=== PATIENT | female | born 1990 | race Caucasian/White ===

== ENCOUNTER 2017-08-21 12:12 | Outpatient (CLI) ==
[2014-11-22 01:58] VITALS: BMI 19.5
== END 2017-08-21 12:13 | disposition home or self-care (01) ==
LOC: RHC-LAB 12:12
PROVIDERS: ATTEND Nurse Practitioner Family
DX: R05 Cough (principal); R11.2 Nausea with vomiting, unspecified; Z32.01 Encounter for pregnancy test, result positive
CPT/HCPCS: 36415; 80053; 84703; 85007; 85025; 87651; 87804

== ENCOUNTER 2017-12-09 17:10 | Emergency (ER) ==
[2017-12-09 17:16] VITALS: BP 130/78; TEMP 97.5; BMI 21.7
[2017-12-09] MEDS ORDERED: SODIUM CHLORIDE 1,000 ML IV STA ×2 (17:39→18:28)
--- NOTE | 2017-12-09 18:26 | ED.PDOC ---
General Stated Complaint: NAUSEA, VOMITING 23 WEEKS GESTATION Time Seen by Physician: 17:12 (SEE WITH NURSE AT BEDSIDE AT ALL TIMES A0) Mode of Arrival: Walk-In Information Source: Patient Exam Limitations: No limitations Referred to ED by: Other (DENIED EATING ANY SPOILED FOOD OR AT PICNIC NOONE ELSE HAS SIMILAR SYMPTOMS AT HER HOUSEHOLD) Nursing and Triage Documentation Reviewed and Agree: Yes Does patient meet sepsis criteria?: No If yes, has appropriate treatment been initiated?: No System Inflammatory Response Syndrome: Not Applicable (ONSET 1 DAY AGO) <BRIANNA HINOJOSA - Last Filed: 12/09/17 18:29> <NORM INGRAM - Last Filed: 12/09/17 19:31> ED Provider: Dr. NORM INGRAM Chief Complaint: Nausea/Vomiting [facility] Sepsis Protocol: For patient's 13 years and over: Temp is 96.8 and below OR 101 and greater Pulse >90 BPM Resp >20/minute Acutely Altered Mental Status Are patient's symptoms suggestive of a new infection, such as: -Pneumonia -Skin, Soft Tissue -Endocarditis -UTI -Bone, Joint Infection -Implantable Device -Acute Abdominal Infection -Wound Infection -Meningitis -Blood Stream Catheter Infection -Unknown GI Complaint Exam - Vomiting/Diarrhea Complaint/Exam Onset/Duration: 1 DAY Symptoms Are: Resolved Initial Severity: Mild Current Severity: None Character of Vomiting: Reports: Non-bilious Aggravating: Reports: None Alleviating: Reports: None Associated Signs and Symptoms: Reports: Abdominal pain. Denies: Dizziness, Light-headedness, Melena, Hematemesis, Fever, Cramping Last Oral Intake: YES Last Bowel Movement: TODAY LOOSE : 3 Para: 2 Hx Total # of Abortions (Spontaneous & Elective): 0 Non-GI Risk Factors: Reports: None Surgical Obstruction Risk Factors: Reports: None Related Surgical History: Reports: None Abdominal Findings: Present: None ( HEART TONE ON ARRIVAL WAS WNL) <BRIANNA HINOJOSA - Last Filed: 12/09/17 18:29> Review of Systems - Review Of Systems Constitutional: Reports: Malaise, Weakness Eyes: Reports: No symptoms Ears, Nose, Mouth, Throat: Reports: No symptoms Respiratory: Reports: No symptoms Cardiac: Reports: No symptoms GI: Reports: Abdominal pain, Diarrhea, Nausea, Poor appetite, Poor fluid intake , Vomiting : Reports: No symptoms Musculoskeletal: Reports: No symptoms Skin: Reports: No symptoms Neurological: Reports: No symptoms Endocrine: Reports: No symptoms Hematologic/Lymphatic: Reports: No symptoms All Other Systems: Reviewed and Negative <BRIANNA HINOJOSA Last Filed: 12/09/17 18:29> Past Medical History - Past Medical History Previously Healthy: Yes Endocrine: Reports: None Cardiovascular: Reports: None Respiratory: Reports: None Hematological: Reports: None Gastrointestinal: Reports: None Genitourinary: Reports: None Neuro/Psych: Reports: None Musculoskeletal: Reports: None Cancer: Reports: None Last Menstrual Period: jul 10 2017 - Surgical History General Surgical History: Reports: None - Family History Family History: Reports: Unknown - Social History Smoking Status: Current every day smoker Hx Substance Use: No Alcohol Screening: None <BRIANNA HINOJOSA Last Filed: 12/09/17 18:29> Physical Exam - Physical Exam Appearance: Ill-appearing Ill-appearing: Mild Eyes: YVETTE, EOMI, Conjunctiva clear ENT: Dry mucosa Respiratory: Airway patent, Breath sounds clear, Breath sounds equal, Respirations nonlabored Cardiovascular: RRR, Pulses normal, No rub, No murmur GI/: Nontender Musculoskeletal: Normal strength, ROM intact, No edema, No calf tenderness Skin: Warm, Dry, Normal color Neurological: Sensation intact, Motor intact, Reflexes intact, Cranial nerves intact, Alert, Oriented Psychiatric: Affect appropriate, Mood appropriate <BRIANNA HINOJOSA Last Filed: 12/09/17 18:29> Re-Evaluation - Re-Evaluation Time of Re-Evaluation: 18:31 (CHRISTINA PRESENT NO VOMITING OR DIARRHEA WHILE IN ED ) Status: Improved Vital Signs Stable: Yes Pain Level: 0 Appearance: NAD Lungs: Clear Skin: Warm and Dry Neuro: Alert and Oriented X3 CV: Other (STARTING SECOND LITTER OF N/S FEEDING THE PT WITH CRACKERS AND PENUTBUTTER) <BRIANNA HINOJOSA Last Filed: 12/09/17 18:29> Physician Notification - Case Discussed Physician Notified: JUAN JOSE Time of Notification: 19:00 <BRIANNA HINOJOSA Last Filed: 12/09/17 18:29> Critical Care Note - Critical Care Note Total Time (mins): 0 <BRIANAN HINOJOSA Last Filed: 12/09/17 18:29> Course - Course Hematology/Chemistry: 12/09/17 17:30 12/09/17 17:30 <BEKAHELIZABETHBRIANNA - Last Filed: 12/09/17 18:29> - Course Hematology/Chemistry: 12/09/17 17:30 12/09/17 17:30 <NORM INGRAM - Last Filed: 12/09/17 19:31> - Course Orders, Labs, Meds: Lab Review 12/09/17 12/09/17 12/09/17 17:30 17:30 17:30 WBC 17.02 H RBC 4.40 Hgb 14.5 Hct 41.2 MCV 93.6 MCH 33.0 H MCHC 35.2 RDW Coeff of Jared 12.9 Plt Count 249 Immature Gran % (Auto) 0.5 Neut % (Auto) 84.0 Lymph % (Auto) 9.6 L [place] % (Auto) 5.3 Eos % (Auto) 0.3 Baso % (Auto) 0.3 Immature Gran # (Auto) 0.1 Neut # (Auto) 14.3 H Lymph # (Auto) 1.6 [place] # (Auto) 0.9 Eos # (Auto) 0.1 Baso # (Auto) 0.1 Sodium 136 Potassium 3.4 L Chloride 106 Carbon Dioxide 19 L Anion Gap 14.4 BUN 7 Creatinine 0.58 L Estimated GFR (MDRD) 123.00 BUN/Creatinine Ratio 12.06 Glucose 72 Lactic Acid Calcium 9.2 Total Bilirubin 0.4 AST 13 L ALT 10 L Alkaline Phosphatase 77 Total Protein 7.0 Albumin 3.0 L Globulin 4.0 Albumin/Globulin Ratio 0.75 Procalcitonin Urine Color Yellow Urine Clarity Clear Urine pH 6.0 Ur Specific [place] >=1.030 Urine Protein 1+ Urine Glucose (UA) Negative Urine Ketones 4+ Urine Blood Trace-intact Urine Nitrite Negative Urine Bilirubin 1+ Urine Urobilinogen 0.2 Ur Leukocyte Esterase Negative Urine Microscopic RBC 5-10 Urine Microscopic WBC 2-5 Ur Squamous Epith Cells 10-20 Amorphous Sediment Trace Urine Bacteria Trace Urine Mucus 2+ 12/09/17 12/09/17 17:51 17:51 WBC RBC Hgb Hct MCV MCH MCHC RDW Coeff of Jared Plt Count Immature Gran % (Auto) Neut % (Auto) Lymph % (Auto) [place] % (Auto) Eos % (Auto) Baso % (Auto) Immature Gran # (Auto) Neut # (Auto) Lymph # (Auto) [place] # (Auto) Eos # (Auto) Baso # (Auto) Sodium Potassium Chloride Carbon Dioxide Anion Gap BUN Creatinine Estimated GFR (MDRD) BUN/Creatinine Ratio Glucose Lactic Acid 8.5 Calcium Total Bilirubin AST ALT Alkaline Phosphatase Total Protein Albumin Globulin Albumin/Globulin Ratio Procalcitonin < 0.05 Urine Color Urine Clarity Urine pH Ur Specific [place] Urine Protein Urine Glucose (UA) Urine Ketones Urine Blood Urine Nitrite Urine Bilirubin Urine Urobilinogen Ur Leukocyte Esterase Urine Microscopic RBC Urine Microscopic WBC Ur Squamous Epith Cells Amorphous Sediment Urine Bacteria Urine Mucus Orders Category Date Time Status ED IV/MEDIPORT/POWERPORT .ONCE EMERGENCY 12/09/17 17:39 Active Heart Tones [ED HEART RATE] .ONCE EMERGENCY 12/09/17 17:39 Active BLOOD CULTURE Stat LAB 12/09/17 17:51 Received CBC W/ AUTO DIFF Stat LAB 12/09/17 17:30 Completed COMPREHENSIVE METABOLIC PANEL Stat LAB 12/09/17 17:30 Completed LACTIC ACID Stat LAB 12/09/17 17:51 Completed PROCALCITONIN Stat LAB 12/09/17 17:51 Completed URINALYSIS C & S IF INDICATED Stat LAB 12/09/17 17:30 Completed 0.9 % Sodium Chloride [Saline Flush] MEDS 12/09/17 17:39 Ordered 1 syr IVF PRN PRN Ondansetron HCl/Pf [Zofran 4 mg/2 ml] MEDS 12/09/17 18:50 Discontinued 2 mg IVP ONCE STA Sodium Chloride 0.9% [Sodium Chloride] 1,000 ml MEDS 12/09/17 17:39 Discontinued IV BOLUS Sodium Chloride 0.9% [Sodium Chloride] 1,000 ml MEDS 12/09/17 18:28 Discontinued IV BOLUS Medications Generic Name Dose Route Start Last Admin Trade Name Freq PRN Reason Stop Dose Admin Sodium Chloride 1 syr 12/09/17 17:39 12/09/17 17:47 Saline Flush IVF 1 syr PRN PRN Administration To flush IV Discontinued Medications Generic Name Dose Route Start Last Admin Trade Name Freq PRN Reason Stop Dose Admin Sodium Chloride 1,000 mls @ 1,000 mls/hr 12/09/17 17:39 12/09/17 17:47 Sodium Chloride IV 12/09/17 18:38 1,000 mls/hr BOLUS STA Administration Sodium Chloride 1,000 mls @ 1,000 mls/hr 12/09/17 18:28 12/09/17 18:52 Sodium Chloride IV 12/09/17 19:27 1,000 mls/hr BOLUS STA Administration Ondansetron HCl 2 mg 12/09/17 18:50 12/09/17 19:01 Zofran 4 Mg/2 Ml IVP 12/09/17 18:51 2 mg ONCE STA Administration Vital Signs: Temp Pulse Resp BP Pulse Ox 12/09/17 17:10 97.5 F L 77 20 130/78 98 Departure - Departure Pt referred to PMD for follow-up: Yes IPMP verified?: No Disposition Discussed With: Patient, Family <BRIANNA HINOJOSA - Last Filed: 12/09/17 18:29> - Departure Time of Disposition: 19:28 <NORM INGRAM - Last Filed: 12/09/17 19:31> - Departure Disposition: HOME SELF-CARE Discharge Problem: Nausea, Vomiting, Hyperemesis gravidarum Instructions: Hyperemesis Gravidarum (ED) Condition: Good Additional Instructions: Please call your Family Physician as soon as possible to schedule a follow-up appointment. Prescriptions: Promethazine HCl [Phenergan Tab] 25 mg PO Q6H PRN #15 tablet PRN Reason: Nausea / Vomiting Allergies/Adverse Reactions: Allergies Penicillins Adverse Reaction (Verified 12/09/17 17:15) Home Medications: Ambulatory Orders Promethazine HCl [Phenergan Tab] 25 mg PO Q6H PRN #15 tablet 12/09/17
[2017-12-09] MEDS ORDERED: ZOFRAN 4 MG/2 ML IVP STA (18:50)
== END 2017-12-09 19:49 | disposition home or self-care (01) ==
LOC: ED 17:10
DX: O21.0 Mild hyperemesis gravidarum (principal); Z3A.23 23 weeks gestation of pregnancy; F17.210 Nicotine dependence, cigarettes, uncomplicated
CPT/HCPCS: 36415; 80053; 81001; 83605; 84145; 85025; 87040; 96361; 96374; 99283

== ENCOUNTER 2018-02-03 13:13 | Outpatient (CLI) | END 2018-02-03 13:14 | disposition home or self-care (01) | LOC: LAB 13:13 | PROVIDERS: ATTEND Nurse Practitioner Women's Health | DX: Z36.9 Encounter for antenatal screening, unspecified (principal); Z3A.28 28 weeks gestation of pregnancy; Z11.3 Encounter for screening for infections with a predominantly sexual mode of transmission | CPT/HCPCS: 36415; 85025; 86592; 87389; 87651 ==

== ENCOUNTER 2018-02-03 14:57 | Outpatient (CLI) | END 2018-02-03 14:58 | disposition home or self-care (01) | LOC: RHC-LAB 14:57 | PROVIDERS: ATTEND Nurse Practitioner Family | DX: J02.9 Acute pharyngitis, unspecified (principal) | CPT/HCPCS: 87651 ==

== ENCOUNTER 2018-02-04 09:28 | Outpatient (CLI) | END 2018-02-04 09:29 | disposition home or self-care (01) | LOC: LAB 09:28 | PROVIDERS: ATTEND Nurse Practitioner Women's Health | DX: Z36.9 Encounter for antenatal screening, unspecified (principal); Z3A.28 28 weeks gestation of pregnancy; Z11.3 Encounter for screening for infections with a predominantly sexual mode of transmission | CPT/HCPCS: 36415; 82947 ==